=== PATIENT | female | born 1985 | race Caucasian/White ===

== ENCOUNTER 2016-12-29 13:57 | Inpatient (IN) | payer BC ==
[~2016-12-29] VITALS: Ht 162.6 cm; Wt 66.8 kg
[2016-12-29 14:10] VITALS: Ht 162.6 cm; Wt 66.8 kg
[2016-12-29] MEDS ORDERED: PRENAT PO (14:14)
[2016-12-29] MEDS ORDERED: LACTATED RINGER'S 1,000 ML IV PRN (15:00)
--- NOTE | 2016-12-29 15:04 | RADRPT ---
PROCEDURE: US OB. CLINICAL INDICATION: Size and dates , macrosomia TECHNIQUE: Multiple sonographic images of the pelvis and gravid uterus were obtained. The images were reviewed on a PACS workstation. COMPARISON: No prior studies are available for comparison. FINDINGS: There is a single viable intrauterine gestation. Cardiac activity is present with 134 beats per min russell. There is a vertex presentation. The placenta is fundal right. There is no evidence for an abruption or placenta previa. Measurements were made in order to determine age. The results are as follows: BPD =9.7 cm HC =33.6 cm AC =35.6 cm FL =7.8 cm Estimated gestational age of approximately 39 weeks and 2 days based on ultrasound measurements. Clinical age: 39 weeks and 4 days. The estimated date of delivery is 01/03/17, based on ultrasound measurements. The EFW = 3782 g, 70.3%, based on LMP age. RPTAT: AA IMPRESSION: Single viable intrauterine gestation of approximately 39 weeks and 2 days based on ultrasound measu rements. .Jake Mckeon MD, Date Time Electronically viewed and signed by .Jake Mckeon MD, MD on 12/29/2016 15:04 .S/
--- NOTE | 2016-12-29 15:13 | TRIAGE ---
OB Triage Datetime Report Generated by CPN: 12/29/2016 15:12 Datetime: 12/29/2016 14:30 Vaginal Exam Dilatation (cms): 2.0 Effacement (%): 70 Station: -2 Datetime: 12/29/2016 14:22 EGA: 39.4 Datetime: 12/29/2016 14:20 Time of Arrival: 12/29/2016 13:54 Arrived By: Ambulatory Arrived From: Home Chief Complaint: UC'S AND BLEEDING FROM TODAY AT 1230 Movement: Present Contractions: Regular Time Contractions Began: 12/29/2016 12:30 Contractions: 3-4 Rupture of Membranes: Denies Vaginal Bleeding: Scant Vaginal Discharge: Present Recent Sexual Intercouse: Denies Abdominal Trauma: Not Applicable Patient Complaints: Contractions Time Provider Notified: 12/29/2016 14:33 Provider Notified: ESHAGHIAN Initial Plan: EFW Datetime: 12/29/2016 14:15 Stage of : OB Triage Assessment Type: Triage Maternal Assessment Level of Consciousness: Fully Conscious DTR's/Clonus: DTRs 2+; No Clonus Headache: Denies Blurred Vision: No Respiratory Effort: Unlabored; Regular Rhythm; Equal Expansion Breath Sounds, Left: Clear and Equal Breath Sounds, Right: Clear and Equal Nausea/Vomiting: Denies RUQ Epigastric Pain: Denies Lower Extremities Edema: None Degree: None Upper Extremities Edema: None Degree: None Facial Edema: None Temperature Route: Axillary Fall Risk Assessment History of Falling: (0) No Secondary Diagnosis: (0) No Ambulatory Aid: (0) Bedrest/Nurse Assist IV Therapy: (0) No Gait: (0) Normal/Bedrest/Immobile Mental Status: (0) Oriented to Own Ability Fall Score: 0 Fall Risk Score Definition: No Risk: No action required
[2016-12-29] MEDS ORDERED: OXYTOCIN 30 UNITS/LR 500 ML IV PRN ×2 (15:30→20:00)
[2016-12-29] MEDS ORDERED: BUTORPHANOL 2 MG INJ IV PRN (15:30)
[2016-12-29] MEDS ORDERED: OXYTOCIN 30 UNITS/LR 500 ML IV SCH ×3 (15:30→17:00)
[2016-12-29] MEDS ORDERED: IBUPROFEN 600 MG TAB PO PRN (15:30)
[2016-12-29] MEDS ORDERED: CARBOPROST 250 MCG INJ IM PRN ×2 (15:30→20:00)
[2016-12-29] MEDS ORDERED: METHYLERGONOVINE 0.2 MG INJ IM PRN ×2 (15:30→20:00)
[2016-12-29] MEDS ORDERED: LIDOCAINE 1% (MPF) 30 ML INJ INJ PRN (15:30)
[2016-12-29] MEDS ORDERED: MISOPROSTOL 200 MCG TAB PR PRN ×2 (15:30→20:00)
[2016-12-29] MEDS: LACTATED RINGER'S 1,000 ML IV SCH ×2 (15:37→17:50)
[2016-12-29 16:19] LABS: ADD SCAN DIFF NO
[2016-12-29 16:21] LABS: BASOPHILS % 0.1 % (0.0-2.0); EOSINOPHILS % 0.3 % (0.0-7.0); HEMOGLOBIN 12.5 g/dl (12.0-16.0); LYMPHOCYTES # 1.3 10^3/ul (0.8-2.9); LYMPHOCYTES % 16.7 % (15.0-51.0); MEAN CORPUSCULAR HEMOGLOBIN 32.2 pg (29.0-33.0); MEAN CORPUSCULAR HGB CONC 34.7 g/dl (32.0-37.0); MEAN CORPUSCULAR VOLUME 92.8 fl (82.0-101.0); MEAN PLATELET VOLUME 10.5 fl (7.4-10.4); MONOCYTE # 0.4 10^3/ul (0.3-0.9); MONOCYTES % 5.6 % (0.0-11.0); NEUTROPHIL # 5.9 10^3/ul (1.6-7.5); PLATELET COUNT 227 10^3/UL (140-415); RED BLOOD COUNT 3.88 10^6/ul (4.20-5.40); RED CELL DISTRIBUTION WIDTH 13.1 % (11.5-14.5); WHITE BLOOD COUNT 7.7 10^3/ul (4.8-10.8)
[2016-12-29 16:35] LABS: INR 0.9; PROTIME 12.1 Sec (12.2-14.2); PT RATIO 0.9
[2016-12-29 16:36] LABS: PARTIAL THROMBOPLASTIN TIME 25.4 Sec (25.0-35.0)
[2016-12-29] MEDS ORDERED: FENTAnyl 2MCG/ML-ROPIV 0.2% 100 ML ONE (18:01)
[2016-12-29] MEDS ORDERED: PROCHLORPERAZINE 10 MG INJ IV PRN (19:00)
[2016-12-29] MEDS ORDERED: KETOROLAC 30 MG INJ IV PRN (19:00)
[2016-12-29] MEDS ORDERED: HYDROmorphONE 1 MG/ML SYG IV PRN ×2 (19:00)
[2016-12-29] MEDS ORDERED: NALOXONE (0.4 MG/ML) INJ IV PRN (19:00)
[2016-12-29] MEDS ORDERED: DIPHENHYDRAMINE 50 MG INJ IV PRN (19:00)
[2016-12-29] MEDS ORDERED: ONDANSETRON 4 MG INJ IV PRN ×2 (19:00→20:00)
[2016-12-29] MEDS ORDERED: FENTAnyl 2MCG/ML-ROPIV 0.2% 100 ML BAG EPI SCH (19:00)
--- NOTE | 2016-12-29 19:51 | LDN ---
Date/Time of Note Date/Time of Note DATE: 12/29/16 TIME: 19:49 Delivery Summary Weeks of Gestation 39 Placenta Delivered: Spontaneously Meconium: none Episiotomy: No Perineal laceration: 1 Laceration repair: 1st degree perineal laceratio repair with 2-0 and 3-0 chromic Anesthesia type: Local Estimated blood loss: 200 Sponge & Needle done & correct: Yes All needle counts correct: Yes Any foreign bodies felt in the: No Problems: Delivery Information Sex Infant Sex: male Apgars 1 Minute: 8 5 Minute: 9 Suctioning Nose & mouth suctioned at sara: No Delee suction performed: No Umbilical Cord Umbilical cord with: 3 Vessels Cord presentations: nuchal cord Nuchal cord present X: 1 Cord Blood was obtained: Yes LAVERNE COLLADO MD December 29, 2016 19:51
[2016-12-29] MEDS ORDERED: SENNA/DOCUSATE NA (8.6MG/50MG) TAB PO PRN (20:00)
[2016-12-29] MEDS ORDERED: ZOLPIDEM 5 MG TAB PO PRN (20:00)
[2016-12-29] MEDS ORDERED: LANOLIN 7 GM TUBE TOP PRN (20:00)
[2016-12-29] MEDS ORDERED: DIPHENHYDRAMINE 25 MG CAP PO PRN (20:00)
[2016-12-29] MEDS ORDERED: OXYCODONE/ASPIRIN (4.88/325) TAB PO PRN (20:00)
--- NOTE | 2016-12-29 20:11 | PREOPHP ---
DATE OF ADMISSION: 12/29/2016 HISTORY OF PRESENT ILLNESS: Ms. Severo Bonner is a 31-year-old 2, para 1, EDC 7, intrauterine at 39 weeks and 4 days gestational age, admitted today in labor. She comp lains of contractions early this morning. She denies any vaginal bleeding or discharge. Her vagina l exam was 2 cm dilated on admission. Her care initially took place with Dr. Uli Quezada chi and later transferred her care to Misbah Collado MD. MEDICAL HISTORY: None. MEDICATIONS: vitamins. PAST SURGICAL HISTORY: None. OBSTETRICAL HISTORY: x1 vaginal delivery. GYNECOLOGIC HISTORY: 12, regular, 3 to 4 days. Denies any sexually transmitted diseases. Sexually active with 1 partner. SOCIAL HISTORY: Denies any smoking, drugs or alcohol. FAMILY HISTORY: None. PHYSICAL EXAMINATION: HEENT: Within normal. LUNGS: CTA bilateral. CARDIOVASCULAR: S1, S2, regular rhythm. ABDOMEN: Gravid, nontender. Negative CVA bilateral. EXTREMITIES: Negative edema. No calf tenderness. INITIAL VAGINAL EXAM: 2, 70, -2. heart tracing category 1, toco regular contraction. ASSESSMENT: Intrauterine at term, in labor. PLAN: Expectant management and pain management. Dictated By: MISBAH PIERCE/CHLOE Conf#: [id number] DID#: [id number] CC: MISBAH COLLADO MD;*EndCC*
[2016-12-29] MEDS: OXYTOCIN 30 UNITS/LR 500 ML IV SCH (20:31)
[2016-12-29 22:00] VITALS: BP 130/80; PULSE 72; RESP 20
[2016-12-29] MEDS: SENNA/DOCUSATE NA (8.6MG/50MG) TAB PO SCH (22:10)
[2016-12-29] MEDS: MAGNESIUM HYDROXIDE 30ML CUP PO SCH (22:10)
[2016-12-30] MEDS: OXYTOCIN 30 UNITS/LR 500 ML IV SCH ×3 (00:30→08:30)
[2016-12-30] MEDS: LACTATED RINGER'S 1,000 ML IV* SCH ×2 (00:34→03:51)
[2016-12-30] MEDS: IBUPROFEN 600 MG TAB PO SCH ×4 (00:50→18:00)
[2016-12-30 03:45] VITALS: BP 116/72; PULSE 85; RESP 20
[2016-12-30] MEDS: WITCH HAZEL/GLYCERIN PAD PR PRN ×2 (06:22→20:13)
[2016-12-30] MEDS: OXYCODONE/ASPIRIN (4.88/325) TAB PO PRN ×2 (07:17→14:03)
[2016-12-30 07:26] LABS: ADD SCAN DIFF NO
[2016-12-30 07:29] LABS: BASOPHILS % 0.1 % (0.0-2.0); EOSINOPHILS % 0.2 % (0.0-7.0); HEMATOCRIT 32.9 % (37.0-47.0); HEMOGLOBIN 11.2 g/dl (12.0-16.0); LYMPHOCYTES # 1.3 10^3/ul (0.8-2.9); MEAN CORPUSCULAR VOLUME 91.1 fl (82.0-101.0); MEAN PLATELET VOLUME 10.1 fl (7.4-10.4); MONOCYTE # 0.6 10^3/ul (0.3-0.9); MONOCYTES % 5.1 % (0.0-11.0); NEUTROPHIL # 10.1 10^3/ul (1.6-7.5); NEUTROPHILS % 83.4 % (39.0-77.0); PLATELET COUNT 175 10^3/UL (140-415); RED BLOOD COUNT 3.61 10^6/ul (4.20-5.40); RED CELL DISTRIBUTION WIDTH 13.1 % (11.5-14.5); WHITE BLOOD COUNT 12.1 10^3/ul (4.8-10.8)
[2016-12-30 08:30] VITALS: BP 112/64; PULSE 80; RESP 17
[2016-12-30] MEDS: MAGNESIUM HYDROXIDE 30ML CUP PO SCH (08:53)
[2016-12-30] MEDS: SENNA/DOCUSATE NA (8.6MG/50MG) TAB PO SCH (08:53)
--- NOTE | 2016-12-30 14:09 | QN ---
Documentation Comment patient seen and evaluated no complaints vs stable ab soft nt uterine fundus at umbillicus firm extremity no edema no calf tenderness a/ sp vaginal delivery ppd doing well p/ encourage ambulation d/c tomorrow LAVERNE COLLADO MD December 30, 2016 14:09
[2016-12-30 16:00] VITALS: BP 112/67; PULSE 62; RESP 16
== END 2016-12-30 20:30 | disposition home or self-care (01) | DRG 775 ==
LOC: OBT 13:57 → L-D 13:58 → OBT 15:00 → L-D 15:00 → PP1 22:01
PROVIDERS: ADMIT Obstetrics & Gynecology; ATTEND Obstetrics & Gynecology
PROC: 10E0XZZ Delivery of Products of Conception, External Approach (ICD-10-PCS; principal; 2016-12-29)
PROC: 0HQ9XZZ Repair Perineum Skin, External Approach (ICD-10-PCS; 2016-12-29)
DX: O69.81X0 Labor and delivery complicated by cord around neck, without compression, not applicable or unspecified (principal); O70.0 First degree perineal laceration during delivery; Z3A.39 39 weeks gestation of pregnancy; Z37.0 Single live birth
CPT/HCPCS: 62319; 76815; 85025; 85610; 85730; 86592; 86900; 86901; 87340; 99464; G0463; J2590; J3010; J7120